=== PATIENT | female | born 1975 | race Caucasian/White ===

== ENCOUNTER → 2016-06-10 | Outpatient (CLI) | payer MEDICAID ==
[~2016-06-10] MED LIST: ACHD5005 PO; AMLO5TAB2 PO; BUSP10TA95 PO; DCS100C PO; IBP600T1 PO; PREN1TAB71 PO; SERT50TA9 PO
--- NOTE | 2016-06-11 10:05 | Diagnostic Imaging Report ---
Bilateral screening mammogram The current study was also evaluated with a Computer Aided Detection (CAD) system. Indication: Screening. No current complaints stated on the questionnaire. COMPARISON: 05/08/2015. FINDINGS: The breasts are composed of heterogeneously dense parenchyma which may decrease mammographic sensitivity. There is no mass, stricture distortion or suspicious cluster of calcifications seen. Allowing for technique and positional differences, no suspicious change is seen. IMPRESSION: Dense breasts with no definite change. ACR BI-RADS Category 2: Benign findings. Result letter will be mailed to the patient. Note: At least 10% of breast cancer is not imaged by mammography. Dictated by: Dictated on workstation # [id number]
== END ==
LOC: RAD 10:16
PROVIDERS: ATTEND Nurse Practitioner Adult Health
DX: Z12.31 Encounter for screening mammogram for malignant neoplasm of breast (principal)
CPT/HCPCS: 77067

== ENCOUNTER → 2016-06-12 | Outpatient (CLI) | payer MEDICAID ==
--- NOTE | 2016-06-12 15:01 | Diagnostic Imaging Report ---
Ultrasound of the neck. INDICATION: Fullness in the lower aspect of the neck on the right side. FINDINGS: No underlying mass or fluid collection is seen. IMPRESSION: Negative study. If there is high index of suspicion, then enhanced CT scan or MRI of the neck could be considered. Dictated by: Dictated on workstation # [id number]
== END ==
LOC: RAD 13:02
PROVIDERS: ATTEND Nurse Practitioner Adult Health
DX: R22.1 Localized swelling, mass and lump, neck (principal)
CPT/HCPCS: 76536

== ENCOUNTER → 2016-06-17 | Outpatient (CLI) | payer MEDICAID ==
--- NOTE | 2016-06-17 13:22 | Diagnostic Imaging Report ---
EXAMINATION: Transabdominal and transvaginal pelvic ultrasound. INDICATION: Uterine fibroids. FINDINGS: The uterus is 7.3 x 6.5 x 6.5 cm. The endometrial stripe is 1.1 cm in thickness. There are multiple hypoechoic lesions seen within the uterus on the right side measuring up to 4.5 x 3.8 x 4.5 cm which appears to be exophytic from the right side of the body of the uterus. The anterior aspect of the myometrium demonstrates a partially exophytic fibroid also measuring 1.8 x 2 x 1.1 cm, slightly smaller compared to the prior study. There is a posterior uterine body myometrial fibroid measuring 2.1 x 2.8 x 1.6 cm. This is significantly smaller compared to the prior study of 05/10/2015. The ovaries are obscured by bowel gas and not well seen. IMPRESSION: Multiple uterine fibroids. Dictated by: Dictated on workstation # [id number]
== END ==
LOC: RAD 10:10
PROVIDERS: ATTEND Obstetrics & Gynecology
DX: D25.1 Intramural leiomyoma of uterus (principal)
CPT/HCPCS: 76830; 76856

== ENCOUNTER → 2017-08-07 | Outpatient (CLI) | payer BC, MEDICAID ==
[~2017-08-07] MED LIST changes: +GADOBUTROL 10 MMOL/10 ML (GADAVIST) VIAL IV ONE
--- NOTE | 2017-08-07 15:37 | Diagnostic Imaging Report ---
EXAMINATION: MRI of the brain and pituitary gland. INDICATION: Abnormal MRI of the pituitary gland. FINDINGS: Multiplanar images utilizing both T1- and T2-weighted sequences were obtained. Additional images following administration of intravenous contrast were also performed. Furthermore, magnified images of the sella in the coronal, axial, and sagittal planes were also performed. FINDINGS: The previous MRI brain and pituitary exam of 11/21/2015 suggested asymmetric thickening of the right side of the pituitary gland with associated slightly decreased enhancement. The possibility that there is an underlying microadenoma in this area was raised. On the coronal images of this study, the right side of the pituitary gland does seem more prominent than the left. This appearance is quite similar to the prior exam. There is no definite area of diminished signal or abnormal enhancement to suggest an underlying lesion, however. The bony configuration of the sphenoid sinus on the left is somewhat more prominent than on the right. This may account for the asymmetry of the pituitary gland. The infundibulum is midline, and the optic chiasm is undisturbed. The expected carotid flow voids are evident bilaterally. There is no mass, shift of the midline, or hemorrhage. There is no abnormal signal arising from the brain on the diffusion series to indicate an area of acute ischemia. There is no signal abnormality arising from the periventricular white matter on the FLAIR series to suggest demyelinating disease either. The ventricles are not abnormally dilated and similar in size to the prior exam. On the postcontrast series, there is no abnormal enhancement to suggest a neoplastic or infectious process. The sinuses are generally clear. The seventh and eighth nerve complexes are unremarkable. IMPRESSION: 1. The right half of the pituitary gland is asymmetrically larger than the left. There is no abnormal signal arising from the pituitary gland, however, to suggest a mass lesion and the gland seems stable when compared to the previous study.. The asymmetry of the pituitary gland could in part be due to the bony configuration of the sphenoid sinus. 2. There is no acute intracranial abnormality identified. 3. There is no abnormal enhancement to suggest a neoplastic or infectious process, and there is no sign of demyelinating disease. Dictated by: Dictated on workstation # [id number]
== END ==
LOC: RAD 10:53
PROVIDERS: ATTEND Family Medicine
DX: D35.2 Benign neoplasm of pituitary gland (principal)
CPT/HCPCS: 70553

== ENCOUNTER → 2019-02-10 | Outpatient (CLI) | payer BC ==
[~2019-02-10] MED LIST changes: -AMLO5TAB2 PO; +AMLO5TAB9 PO; -GADOBUTROL 10 MMOL/10 ML (GADAVIST) VIAL IV ONE
== END ==
LOC: RAD 08:15
PROVIDERS: ATTEND Nurse Practitioner Family
DX: M25.511 Pain in right shoulder (principal); Z53.8 Procedure and treatment not carried out for other reasons

== ENCOUNTER 2019-09-30 13:25 | Emergency (ER) | payer SELFPAY ==
[~2019-09-30] VITALS: Ht 165 cm; Wt 80.0 kg
[2019-09-30 13:59] LABS: BASOPHILS # (AUTO) 0.1 10^3/uL (0.0-0.1); BASOPHILS % (AUTO) 2 % (0-10); EOSINOPHILS % (AUTO) 0 % (0-10); HEMATOCRIT 40 % (35-52); HEMOGLOBIN 14.3 G/DL (11.5-16.0); LYMPHOCYTES # (AUTO) 0.8 X 10^3 (1.0-4.0); LYMPHOCYTES % (AUTO) 22 % (12-44); MEAN CORPUSCULAR HEMOGLOBIN 38 PG (25-34); MEAN CORPUSCULAR HGB CONC 36 G/DL (32-36); MEAN CORPUSCULAR VOLUME 105 FL (80-99); MEAN PLATELET VOLUME 9.4 FL (7.4-10.4); MONOCYTES # (AUTO) 0.5 X 10^3 (0.0-1.0); MONOCYTES % (AUTO) 14 % (0-12); NEUTROPHILS # (AUTO) 2.2 X 10^3 (1.8-7.8); NEUTROPHILS % (AUTO) 63 % (42-75); PLATELET COUNT 195 10^3/uL (130-400); RED CELL DISTRIBUTION WIDTH 14.3 % (10.0-14.5); WHITE BLOOD COUNT 3.5 10^3/uL (4.3-11.0)
[2019-09-30 14:00] LABS: BILIRUBIN,URINE NEGATIVE (NEGATIVE); CLARITY,URINE CLEAR; COLOR,URINE YELLOW; GLUCOSE, URINE (UA) NEGATIVE (NEGATIVE); KETONES,URINE NEGATIVE (NEGATIVE); LEUKOCYTE ESTERASE ,URINE NEGATIVE (NEGATIVE); NITRITE,URINE NEGATIVE (NEGATIVE); PROTEIN,URINE 2+ (NEGATIVE)
--- NOTE | 2019-09-30 14:05 | NUR ---
BED SIDE POC IS 123. DR IS INFORMED.
[2019-09-30 14:10] LABS: ALBUMIN 4.1 GM/DL (3.2-4.5)
[2019-09-30 14:11] LABS: CHLORIDE 98 MMOL/L (98-107); POTASSIUM 3.8 MMOL/L (3.6-5.0); SODIUM 136 MMOL/L (135-145)
[2019-09-30 14:12] LABS: CALCIUM 8.9 MG/DL (8.5-10.1)
[2019-09-30 14:13] LABS: GLUCOSE 144 MG/DL (70-105); TOTAL PROTEIN 7.9 GM/DL (6.4-8.2)
[2019-09-30 14:14] LABS: CARBON DIOXIDE 24 MMOL/L (21-32)
[2019-09-30 14:15] LABS: BILIRUBIN,TOTAL 1.4 MG/DL (0.1-1.0)
[2019-09-30 14:16] LABS: ALKALINE PHOSPHATASE 125 U/L (40-136)
[2019-09-30 14:17] LABS: CREATININE SERUM 0.75 MG/DL (0.60-1.30); GFR ESTIMATED > 60
[2019-09-30 14:18] LABS: BUN/CREATININE RATIO 7
[2019-09-30 14:19] LABS: MAGNESIUM 1.5 MG/DL (1.6-2.4)
[2019-09-30 14:20] LABS: ALANINE AMINOTRANSFERASE 103 U/L (0-55)
[2019-09-30 14:34] LABS: BACTERIA,URINE MODERATE /HPF; RBC,URINE 0-2 /HPF; SQUAMOUS EPITHELIAL CELL,UR 0-2 /HPF; WBC,URINE 0-2 /HPF
[2019-09-30 14:35] LABS: AMPHETAMINE SCREEN, URINE NEGATIVE (NEGATIVE); BARBITURATE SCREEN URINE NEGATIVE (NEGATIVE); BENZODIAZEPINES SCREEN URINE NEGATIVE (NEGATIVE); CANNABINOID SCREEN, URINE NEGATIVE (NEGATIVE); COCAINE SCREEN URINE NEGATIVE (NEGATIVE); METHADONE STAT NEGATIVE (NEGATIVE); METHAMPHETAMINE SCREEN URINE S NEGATIVE (NEGATIVE); OPIATE SCREEN URINE NEGATIVE (NEGATIVE); OXYCODONE STAT NEGATIVE (NEGATIVE); PROPOXYPHENE STAT NEGATIVE (NEGATIVE); TRICYCLIC ANTIDEPRESSANTS SCRE NEGATIVE (NEGATIVE)
[2019-09-30 14:40] LABS: TSH (THYROID ANALYZER) 3.47 UIU/ML (0.35-4.94)
[2019-09-30] MEDS ORDERED: MAGNESIUM OXIDE (MAG-OX)400 MG TAB PO ONE (15:30)
[2019-09-30] MEDS ORDERED: toPIRamate 25 MG (TOPAMAX) TAB PO ONE (15:30)
[2019-09-30] MEDS ORDERED: LORazepam INJ 2 MG/ML (ATIVAN) VIAL IVP ONE (15:30)
--- NOTE | 2019-09-30 15:56 | ED Neurological Problem ---
General Chief Complaint: Neurological Problems Stated Complaint: SEIZURE Nursing Triage Note: THE PT ARRIVAL BY EMS. NO DISTRESS IS SEEN ON ARRIVAL. LOC IS NORMAL FOR THE PT. SKIN W/D PINK. EMS CALL REFERENCE WAS POSS SEIZURE ACTIVITY. Nursing Sepsis Screen: No Definite Risk Source: patient, EMS Exam Limitations: no limitations History of Present Illness Date Seen by Provider: September 30, 2019 Time Seen by Provider: 13:26 Initial Comments This 44-year-old woman results to the emergency room with a 20 to 30 second seizure in her home. It was witnessed by an individual known to the patient who activated EMS. Patient has a remote history of seizure about 6 years ago. She is noted to be hypertensive and exhibiting tremor. Alcohol withdrawal was suspected. Patient did admit to drinking more days than not but not daily. She has not had any alcohol since last night. She also takes Topamax for headaches but has not yet taken her Topamax today. Patient was very postictal for EMS with progressive improvement in cognition and route. She is conversational on arrival. Patient does have history of alcohol abuse and is currently using a breathalyzer because of DUI. At one time there was question of pituitary tumor. MRIs done in 2015 2017 were stable. Patient feels okay right now except for being chilled (wet with rain) and having headache. Allergies and Home Medications Allergies Coded Allergies: No Known Drug Allergies (Unverified , 10/27/14) Home Medications Amlodipine Besylate 5 Mg Tablet, 5 MG PO DAILY, (Reported) Buspirone Hcl 10 Mg Tablet, 10 MG PO BID, (Reported) Hydrocodone Bit/Acetaminophen 1 Tab Tab, 1-2 TAB PO Q6H PRN for PAIN Prescribed by: ANJUM BRENNER on 10/29/14 0923 Ibuprofen 600 Mg Tab, 600 MG PO Q6H PRN for PAIN Prescribed by: ANJUM BRENNER on 10/29/14 0923 Vit/Fe Fumarate/Fa 1 Each Tablet, 1 EACH PO DAILY, (Reported) Sertraline HCl 50 Mg Tablet, 50 MG PO DAILY, (Reported) Patient Home Medication List Home Medication List Reviewed: Yes Review of Systems Review of Systems Constitutional: no symptoms reported Eyes: No Symptoms Reported Ears, Nose, Mouth, Throat: no symptoms reported Respiratory: no symptoms reported Cardiovascular: see HPI Gastrointestinal: no symptoms reported Genitourinary: no symptoms reported Musculoskeletal: no symptoms reported Psychiatric/Neurological: See HPI Endocrine: No Symptoms Reported Hematologic/Lymphatic: No Symptoms Reported Past Iiaoxas-Yqcibe-Xfpdvl Hx Past Med/Social Hx: Reviewed and Corrections made Patient Social History Recent Foreign Travel: No Contact w/Someone Who Travel: No Recent Infectious Disease Expo: No Physical Abuse: No Sexual Abuse: No Mistreated: No Fear: No Immunizations Up To Date Tetanus Booster (TDap): Unknown Past Medical History Surgeries: Yes (wisdom teeth, cyst removed from neck) Respiratory: No Cardiac: Yes Hypertension Neurological: Yes Seizure Disorder : No Reproductive Disorders: Yes (fibroids) Sexually Transmitted Disease: No HIV/AIDS: No Gastrointestinal: No Musculoskeletal: No Endocrine: No HEENT: No Cancer: No Psychosocial: Yes Anxiety, Depression Adverse Reaction/Blood Tranf: No Family Medical History Reviewed Nursing Family Hx Diabetes mellitus (FATHER'S SIDE OF FAMILY) EMP FH: emphysema (DAD' SIDE OF FAMILY) Physical Exam Vital Signs Vital Signs - First Documented 09/30/19 13:41 Temp 37.2 Pulse 98 Resp 16 B/P (MAP) 166/100 (122) Pulse Ox 96 Capillary Refill : Less Than 3 Seconds Height, Weight, BMI Height: 5'9.00" Weight: 198lbs. 0.0oz. [id number]; 29.00 BMI Method: General Appearance: WD/WN, no apparent distress HEENT: PERRL/EOMI, normal ENT inspection Neck: normal inspection Respiratory: lungs clear, normal breath sounds, no respiratory distress Cardiovascular: regular rate, rhythm, no edema, no murmur Gastrointestinal: normal bowel sounds, non tender, soft Extremities: normal inspection, no pedal edema Neurologic/Psychiatric: puppet master II-XII nml as tested, no motor/sensory deficits, alert, normal mood/affect, oriented x 3, other (tremors, postictal state improving) Skin: normal color, warm/dry Progress/Results/Core Measures Results/Orders Lab Results Laboratory Tests Test 09/30/19 13:37 09/30/19 13:50 Range/Units Glucometer 123 H 70-110 MG/DL White Blood Count 3.5 L 4.3-11.0 10^3/uL Red Blood Count 3.81 L 4.35-5.85 10^6/uL Hemoglobin 14.3 11.5-16.0 G/DL Hematocrit 40 35-52 % Mean Corpuscular Volume 105 H 80-99 FL Mean Corpuscular Hemoglobin 38 H 25-34 PG Mean Corpuscular Hemoglobin Concent 36 32-36 G/DL Red Cell Distribution Width 14.3 10.0-14.5 % Platelet Count 195 130-400 10^3/uL Mean Platelet Volume 9.4 7.4-10.4 FL Neutrophils (%) (Auto) 63 42-75 % Lymphocytes (%) (Auto) 22 12-44 % Monocytes (%) (Auto) 14 H 0-12 % Eosinophils (%) (Auto) 0 0-10 % Basophils (%) (Auto) 2 0-10 % Neutrophils # (Auto) 2.2 1.8-7.8 X 10^3 Lymphocytes # (Auto) 0.8 L 1.0-4.0 X 10^3 Monocytes # (Auto) 0.5 0.0-1.0 X 10^3 Eosinophils # (Auto) 0.0 0.0-0.3 10^3/uL Basophils # (Auto) 0.1 0.0-0.1 10^3/uL Urine Color YELLOW Urine Clarity CLEAR Urine pH 8.0 5-9 Urine Specific [place] 1.020 1.016-1.022 Urine Protein 2+ H NEGATIVE Urine Glucose (UA) NEGATIVE NEGATIVE Urine Ketones NEGATIVE NEGATIVE Urine Nitrite NEGATIVE NEGATIVE Urine Bilirubin NEGATIVE NEGATIVE Urine Urobilinogen 1.0 < = 1.0 MG/DL Urine Leukocyte Esterase NEGATIVE NEGATIVE Urine RBC (Auto) 1+ H NEGATIVE Urine RBC 0-2 /HPF Urine WBC 0-2 /HPF Urine Squamous Epithelial Cells 0-2 /HPF Urine Crystals NONE /LPF Urine Bacteria MODERATE H /HPF Urine Casts NONE /LPF Urine Mucus NEGATIVE /LPF Urine Culture Indicated YES Sodium Level 136 135-145 MMOL/L Potassium Level 3.8 3.6-5.0 MMOL/L Chloride Level 98 98-107 MMOL/L Carbon Dioxide Level 24 21-32 MMOL/L Anion Gap 14 5-14 MMOL/L Blood Urea Nitrogen 5 L 7-18 MG/DL Creatinine 0.75 0.60-1.30 MG/DL Estimat Glomerular Filtration Rate > 60 BUN/Creatinine Ratio 7 Glucose Level 144 H 70-105 MG/DL Calcium Level 8.9 8.5-10.1 MG/DL Corrected Calcium 8.8 8.5-10.1 MG/DL Magnesium Level 1.5 L 1.6-2.4 MG/DL Total Bilirubin 1.4 H 0.1-1.0 MG/DL Aspartate Amino Transf (AST/SGOT) 198 H 5-34 U/L Alanine Aminotransferase (ALT/SGPT) 103 H 0-55 U/L Alkaline Phosphatase 125 40-136 U/L Total Protein 7.9 6.4-8.2 GM/DL Albumin 4.1 3.2-4.5 GM/DL TSH [place] Testing 3.47 0.35-4.94 UIU/ML Serum Test, Qualitative NEGATIVE NEGATIVE Urine Opiates Screen NEGATIVE NEGATIVE Urine Oxycodone Screen NEGATIVE NEGATIVE Urine Methadone Screen NEGATIVE NEGATIVE Urine Propoxyphene Screen NEGATIVE NEGATIVE Urine Barbiturates Screen NEGATIVE NEGATIVE Ur Tricyclic Antidepressants Screen NEGATIVE NEGATIVE Urine Phencyclidine Screen NEGATIVE NEGATIVE Urine Amphetamines Screen NEGATIVE NEGATIVE Urine Methamphetamines Screen NEGATIVE NEGATIVE Urine Benzodiazepines Screen NEGATIVE NEGATIVE Urine Cocaine Screen NEGATIVE NEGATIVE Urine Cannabinoids Screen NEGATIVE NEGATIVE Serum Alcohol < 10 <10 MG/DL My Orders Orders - LUIS STEVENSON MD Alcohol (09/30/19 13:34) Cbc With Automated Diff (09/30/19 13:34) Comprehensive Metabolic Panel (09/30/19 13:34) Drug Screen Stat (Urine) (09/30/19 13:34) Hcg,Qualitative Serum (09/30/19 13:34) Magnesium (09/30/19 13:34) Thyroid Analyzer (09/30/19 13:34) Ua Culture If Indicated (09/30/19 13:34) Urine Culture (09/30/19 13:50) Lorazepam Injection (Ativan Injection) (09/30/19 15:30) Magnesium Oxide Tablet (Mag Ox Tablet) (09/30/19 15:30) Topiramate Tablet (Topamax Tablet) (09/30/19 15:30) Medications Given in ED Current Medications Medications Dose Ordered Sig/Lexi Route Start Time Stop Time Status Last Admin Dose Admin Lorazepam 2 mg ONCE ONCE IVP 09/30/19 15:30 09/30/19 15:31 DC 09/30/19 15:29 2 MG Magnesium Oxide 400 mg ONCE ONCE PO 09/30/19 15:30 09/30/19 15:31 DC 09/30/19 15:28 400 MG Topiramate 25 mg ONCE ONCE PO 09/30/19 15:30 09/30/19 15:31 DC 09/30/19 15:46 25 MG Vital Signs/I&O 09/30/19 09/30/19 13:41 16:25 Temp 37.2 36.6 Pulse 98 93 Resp 16 16 B/P (MAP) 166/100 (122) 160/100 Pulse Ox 96 97 Blood Pressure Mean: 122 Progress Progress Note : Progress Note Patient had no further seizure-like activity. Ativan was given for suspected alcohol withdrawal. Blood pressure and tremors did decrease after Ativan and she did feel improved. Topamax was given as well as Topamax withdrawal may be a contributing factor. Alcohol withdrawal is a possible cause of seizure was discussed with the patient. She was encouraged to get treatment and do not stop alcohol consumption abruptly. Patient indicated she uses a breathalyzer to drive because she has been having trouble with DUI. Abdomen form her she may not drive for 6 months until cleared by physician due to seizure. Departure Impression Primary Impression: Seizure Additional Impressions: Elevated liver enzymes Hypomagnesemia Hypertension Qualified Codes: I10 - Essential (primary) hypertension Acute headache Qualified Codes: R51 - Headache Disposition: 01 HOME, SELF-CARE Condition: Improved Departure-Patient Inst. Decision time for Depature: 15:52 Referrals: YON STOUT MD (PCP/Family) Primary Care Physician Patient Instructions: Alcohol Withdrawal, Seizures Add. Discharge Instructions: Drink plenty of clear liquids to stay well-hydrated. Return home and drink a small amount of alcohol to prevent withdrawal. Gradually taper down on your alcohol consumption to prevent further withdrawal symptoms. [place] state law for beds driving after a seizure for at least 6 months or until cleared by physician. You may not drive unless otherwise cleared by a physician. Follow-up with your primary care provider soon as possible. You need to discuss alcohol cessation, headache management, blood pressure management, and your elevated liver enzymes at your follow-up appointment. Return to the emergency room if you have worsening symptoms. All discharge instructions reviewed with patient and/or family. Voiced understanding. Copy Copies To 1: YON STOUT MD, JOSHUA T MD September 30, 2019 15:56
[2019-09-30 16:25] VITALS: BP 160/100
== END 2019-09-30 16:13 | disposition home or self-care (01) ==
LOC: EDUNIT# 13:25 → ER 13:26
DX: G40.909 Epilepsy, unspecified, not intractable, without status epilepticus (principal); R94.5 Abnormal results of liver function studies; E83.42 Hypomagnesemia; I10 Essential (primary) hypertension; R51 Headache; F41.9 Anxiety disorder, unspecified; F32.9 Major depressive disorder, single episode, unspecified
CPT/HCPCS: 36415; 80053; 80306; 80320; 81000; 82962; 83735; 84443; 84703; 85025; 87077; 87088; 87186

== ENCOUNTER → 2019-10-21 | Outpatient (CLI) | payer SELFPAY ==
--- NOTE | 2019-10-21 14:40 | Diagnostic Imaging Report ---
Clinical indications: Patient had a seizure. Patient has history of headaches. Exam: MRI of the brain performed without IV contrast. Sequences include axial DWI, ADC map, axial T2, axial FLAIR, axial T1, axial gradient echo, coronal T2 thin, coronal FLAIR thin and sagittal T1. COMPARISON: MRI of the brain/pituitary performed without and with IV contrast dated 08/07/2017. FINDINGS: There is no evidence of acute cerebral infarct, intracranial hemorrhage, or gross mass effect. The brain parenchymal volume appears appropriate for patient's age. There is no significant brain parenchymal signal abnormality. There is normal meyers-white matter distinction. There is no significant midline shift or herniation. The [place] vascular structures show no gross abnormality as visualized. There is stable appearance and configuration of the pituitary and sella region. The right side of the pituitary is slightly more prominent than left side. There is also irregularity of the floor of the sella/roof of the sphenoid sinus which may also be contributing to this appearance of the pituitary gland. There is no evidence of hydrocephalus. The basal cisterns are unremarkable. The skull, extracranial soft tissue, and orbits are unremarkable. There is stable mild mucosal thickening involving right ethmoid sinus. Temporal bones show no significant abnormality. IMPRESSION: 1: Stable MRI of the brain with no evidence of acute intracranial process. 2: Stable appearance and configuration of the pituitary gland, as described above. There is no developing mass seen. 3: Stable small area of mucosal thickening involving the right ethmoid sinus. Dictated by: Dictated on workstation # [id number]
== END ==
LOC: RAD 13:02
DX: R56.9 Unspecified convulsions (principal); R51 Headache
CPT/HCPCS: 70551